=== PATIENT | male | born 1985 | race Caucasian/White ===

== ENCOUNTER 2023-05-28 03:44 | Emergency (ER) | payer OTHER, SELFPAY ==
[2023-05-28 04:14] VITALS: BP 144/94; PULSE 117; RESP 18; TEMP 37; O2SAT 100; BMI 27.1
--- NOTE | 2023-05-28 04:57 | ED.DENTAL ---
HPI - Dental/Oral General Chief complaint: Dental/Oral Stated complaint: Dental pain Time Seen by Provider: 05/28/23 04:47 Source: patient and old records reviewed Mode of arrival: ambulatory Limitations: no limitations History of Present Illness HPI Narrative: 37 yo male with PMH of asthma, GERD, obesity here with c/o L lower molar cracking two weeks ago tonight woke up noted white stuff coming out of tooth area with toothace, also feels swollen glands and tightening of the neck muscles, and popping in the ears. MD Complaint: tooth pain Location: Tooth # (17) Onset (ago): hour(s) (few) Duration: constant Severity: moderate Relieving factors: nothing Exacerbating factors: chewing Context: trauma (mechanism) Associated symptoms: gum swelling and ear pain Treatment prior to arrival: none Related Data Home Medications Medication Instructions Recorded Confirmed buprenorphine 5.7 mg-naloxone 1.4 1 tab sublingual DAILY 01/11/20 04/11/20 mg sublingual tablet (Zubsolv) Previous Rx's Medication Instructions Recorded ProAir HFA 90 mcg/actuation 2 puff inhalation Q6H PRN for 10/09/20 aerosol inhaler (albuterol sulfate) wheezing #8.5 grams omeprazole 20 mg capsule,delayed 20 mg PO DAILY #90 caps 11/01/20 release hydroxyzine HCl 50 mg tablet 50 mg PO BID PRN itching #60 tabs 02/17/21 fluticasone propionate 110 2 puff inhalation BID #12 grams 03/23/21 mcg/actuation HFA aerosol inhaler (Flovent HFA) amoxicillin 875 mg-potassium 1 tab PO BID #13 tabs 05/28/23 clavulanate 125 mg tablet ofloxacin 0.3 % ear drops 5 drp otic (ears) DAILY 7 days #5 05/28/23 mL Allergies Allergy/AdvReac Type Severity Reaction Status Date / Time No Known Allergies Allergy Verified 01/11/20 16:08 Review of Systems Review of Systems: Constitutional : No Fever, No Chills ENT/Mouth : No swallowing difficulty, no change in voice, positive dental pain, positive jaw pain, no facial swelling Eyes: No Eye Pain, No Swelling Cardiovascular : No Chest Pain, No SOB Respiratory : No Cough, No Sputum Gastrointestinal : No Nausea, No Vomiting, No Diarrhea Genitourinary : No Dysuria Musculoskeletal : No Myalgias Skin : No rash Neuro : No Weakness, No Numbness, No Headache [facility] Past Medical History Attestation statement: The following information was validated with the patient. Source: old records reviewed Medical History Anxiety and depression Polysubstance abuse GERD (gastroesophageal reflux disease) Obesity (BMI 30-39.9) Asthma Surgical History No pertinent past surgical history Family History Family History (Updated 04/11/20 @ 12:04 by Maryanne Johnson MD) Father Hodgkin disease Mother No problems noted. Maternal Grandfather Esophageal cancer Maternal Uncle Drug addiction Myocardial infarct Sister Depressed Social History Social History Alcohol intake: never Advance Directives: No Advance Directives Information Provided: Yes Physical Exam Vital Signs: Vital Signs: Last Vital Signs Temp 98.6 F 05/28/23 04:14 Pulse 117 H 05/28/23 04:14 Resp 18 05/28/23 04:14 BP 144/94 H 05/28/23 04:14 Pulse Ox 100 05/28/23 04:14 O2 Del Method Room Air 05/28/23 04:14 BMI result Body Mass Index 27.1 Appearance: Alert. Oriented X3. No acute distress. Eyes: Pupils equal, round and reactive to light. ENT: Pharynx normal. no trismus L lower molar 17th ttp cracked no fluctuance no abscess noted no sublingual no submandibular swelling normal ROM bilateral ear canals mild erythema no drainage mild ttp Neck: Normal inspection. Neck supple. CVS: Normal heart rate and rhythm. Pulses normal. Respiratory: No respiratory distress. Breath sounds normal. Abdomen: Soft and nontender. Skin: Skin warm and dry. Normal skin color. Normal skin turgor. Extremities: No lower extremity edema. No calf ttp Neuro: Oriented X 3. No motor deficit. No sensory deficit. Medical Decision Making Medical Decision Making [facility] Narrative: 37 yo male with PMH of asthma, GERD, obesity here with left lower tooth pain and cracked tooth will need augmentin no signs of deeper space infection no sublingual or submandibular swelling no abscess noted, bilateral otitis externa noted. not toxic appearing Differential Diagnosis Differential Diagnoses: The differential diagnosis associated with the presentation includes toothache, cracked tooth, otitis externa External Record Review External record reviewed: Inpatient record Prescription Management I considered prescription management with: Pain Medication, Antibiotic and Other Discharge Plan Discharge Clinical Impression: Toothache Otitis externa Qualifiers: Otitis externa type: diffuse Chronicity: acute Laterality: bilateral Qualified Code(s): H60.313 - Diffuse otitis externa, bilateral Patient Disposition: Home, Self-Care Instructions: Otitis Externa (ED), Toothache (ED) Additional Instructions: follow up with your dentist return for worsening symptoms, fevers, pain, swelling or any other concerns. On amoxicillin-clavulanate, softer bowel movements are to be expected. Call your provider if you move your bowels more than 4 times a day, your bowel movements are almost all liquid, or you get a rash.? Prescriptions: New amoxicillin-pot clavulanate 875-125 mg tablet 1 tab PO BID Qty: 13 0RF ofloxacin 0.3 % drops 5 drp otic (ears) DAILY 7 Days Qty: 5 0RF No Action albuterol sulfate [ProAir HFA] 90 mcg/actuation HFA aerosol inhaler 2 puff inhalation Q6H PRN (Reason: for wheezing) Qty: 8.5 1RF omeprazole 20 mg capsule,delayed release(DR/EC) 20 mg PO DAILY Qty: 90 1RF hydroxyzine HCl 50 mg tablet 50 mg PO BID PRN (Reason: itching) Qty: 60 2RF Flovent HFA 110 mcg/actuation HFA aerosol inhaler 2 puff inhalation BID Qty: 12 11RF Zubsolv 5.7-1.4 mg tablet, sublingual 1 tab sublingual DAILY
[2023-05-28] MEDS: Amoxicillin/Potassium Clav 875 MG TABLET PO (05:13)
[2023-05-28 05:20] VITALS: BP 113/75; PULSE 103; RESP 16; TEMP 36.8; O2SAT 97
== END 2023-05-28 05:21 | disposition home or self-care (01) ==
PROVIDERS: Emergency Provider Emergency Medicine; PCP Internal Medicine
DX: H60.313 Diffuse otitis externa, bilateral (principal); K08.89 Other specified disorders of teeth and supporting structures
CPT/HCPCS: 99283

== ENCOUNTER 2023-08-05 13:50 | Emergency (ER) | payer SELFPAY ==
--- NOTE | ~2023-08-05 | CT_ITS ---
EXAMINATION: CT SOFT TISSUE NECK WITH CONTRAST CLINICAL INFORMATION: Left facial swelling, concern for dental abscess versus parotitis COMPARISON: None. TECHNIQUE: Following the administration of 60 mL of Omnipaque 350 intravenous contrast, helical imaging was performed in the axial plane with generation of coronal and sagittal reformatted images. This CT examination was performed using dose optimization techniques as appropriate, variously including the following: *Automated exposure control. *Adjustment of mA and/or kV according to patient size (this includes techniques or standardized protocols for targeted exams where dose is matched to indication/reason for exam; i.e. extremities or head). *Use of iterative reconstruction technique. DLP: 512 mGy-cm. FINDINGS: Carious left mandibular first and second molars with periodontal/periapical disease associated with the carious left mandibular molar, suspected periapical abscess given extensive infectious transspatial process in the left face/neck. Presumably odontogenic edema/phlegmon within the left ecologist space with myositis of the ecologist space musculature. Ill-defined somewhat branching peripherally enhancing hypodensity within the left medial pterygoid muscle suspicious for developing intramuscular abscess, spanning approximately 2.8 cm in craniocaudal dimension and 0.4 cm in width. There is asymmetric thickening of the left perimandibular gingivobuccal soft tissues without drainable subperiosteal abscess. Thickening of the left greater than right platysma muscles. Skin thickening and reticulation within the superficial and deep subcutaneous soft tissues of the left face, submandibular, and submental region tracking caudally into the left greater than right infrahyoid neck compatible with cellulitis. Significant inflammatory stranding of the left submandibular triangle with acute secondary sialoadenitis of the left submandibular gland. Asymmetric enlargement and increased density of the left parotid gland, likely also reflecting secondary parotitis. Cellulitis tracks caudally, marginating the left visceral space and infrahyoid musculature. There is edema/myositis of the left greater than right floor of mouth. Query minimal stranding within the left base of neck/upper mediastinum adjacent to the left common carotid and subclavian arteries. No retropharyngeal effusion. Submucosal edema involves the left nasopharynx effacing the left fossa of Rosenmuller, left palatine tonsil extending to its junction with the soft palate, and tracks caudally along the left lateral oropharyngeal, and left tongue base with effacement of the left vallecula. There is mild narrowing of the oropharyngeal airway. Reactive prominent bilateral level 1b, level 1a, and jugulodigastric lymph nodes. Carious right posterior mandibular molar with periodontal/periapical lucency and active osteitis of the surrounding mandibular alveolus. There is significant mucosal disease and patchy secretions throughout the bilateral nasal cavities and within the nasopharynx. Mild mucosal disease within the maxillary sinuses. A couple opacified bilateral mastoid air cells. The temporomandibular joints are normal. The laryngeal structures are opposed, limiting assessment. The right submandibular and parotid glands are normal, noting cellulitis within the right submandibular triangle. The thyroid gland is normal. The partially visualized lung apices are clear. Grossly normal opacification of the major neck vessels. Mild cervical spondylosis. The imaged portions of the brain parenchyma are unremarkable. CT/CT soft tissue neck w IV con IMPRESSION: 1. Carious left mandibular first and second molars, suspected odontogenic source of infection with cellulitis tracking throughout the left greater than right face and neck as above. Significant phlegmon/myositis in the left ecologist space with developing abscess in the left medial pterygoid muscle spanning approximately 2.8 cm in craniocaudal dimension and 0.4 cm in width. Associated secondary acute left submandibular and likely left parotid sialoadenitis. Asymmetric submucosal edema throughout the left pharyngeal mucosal space mildly narrowing the oropharynx. Edema/myositis noted along the left greater than right floor of mouth. Query minimal stranding within the left base of neck/upper mediastinum adjacent to the left common carotid and subclavian arteries, which opacify normally. Reactive cervical chain lymphadenopathy. 2. Carious right posterior mandibular molar. 3. Paranasal sinus mucosal disease as above.
[2023-08-05 14:15] VITALS: BP 152/92; PULSE 130; RESP 20; TEMP 36.8; O2SAT 97; BMI 27.9
--- NOTE | 2023-08-05 14:16 | ED_ITS ---
HPI - General Adult General Chief complaint: Neck Pain/Injury Stated complaint: facial swelling into neck Time Seen by Provider: 08/05/23 14:39 History of Present Illness ED Provider: Dr. Jose Rafael Prater HPI narrative: 37-year-old male with a history of dysphagia, GERD, obesity, asthma, heroin use disorder in remission who presents emergency department for evaluation of left- sided face and neck swelling x6 days. He states initially there was a small amount of swelling on left side of his face but overnight the swelling got significantly worse. He states that it is spread below his jaw and to his neck. He states that he is having [id number] pain in this area which she describes as a pressure-like sensation which is 4/10. He is having difficulty opening his mouth secondary to the swelling. He denied fever or chills but he states he does feel like he is getting hot flashes. He states he feels short of breath but he attributes this to his asthma. He denied nausea, vomiting or diarrhea. This is 1st episode of this type of swelling. He states he did crack a tooth on the left side of his mouth proximally 1 year prior but is having no dental pain. The patient states his symptoms are making him very anxious. He has a history of intranasal heroin use but he states that he has been in remission and has not used recently. Related Data Home Medications ?Medication ?Instructions ?Recorded ?Confirmed buprenorphine 5.7 mg-naloxone 1.4 1 tab sublingual DAILY 01/11/20 04/11/20 mg sublingual tablet (Zubsolv) Previous Rx's ?Medication ?Instructions ?Recorded ProAir HFA 90 mcg/actuation 2 puff inhalation Q6H PRN for 10/09/20 aerosol inhaler (albuterol sulfate) wheezing #8.5 grams omeprazole 20 mg capsule,delayed 20 mg PO DAILY #90 caps 11/01/20 release hydroxyzine HCl 50 mg tablet 50 mg PO BID PRN itching #60 tabs 02/17/21 fluticasone propionate 110 2 puff inhalation BID #12 grams 03/23/21 mcg/actuation HFA aerosol inhaler (Flovent HFA) amoxicillin 875 mg-potassium 1 tab PO BID #13 tabs 05/28/23 clavulanate 125 mg tablet ofloxacin 0.3 % ear drops 5 drp otic (ears) DAILY 7 days #5 05/28/23 mL Allergies Allergy/AdvReac Type Severity Reaction Status Date / Time No Known Allergies Allergy Verified 08/05/23 14:18 Review of Systems 2 Review of Systems: Yes all other systems are reviewed and are negative [facility] Past Medical History [facility] Narrative: Social history: He denies tobacco, alcohol and drug use. Medical History Anxiety and depression Polysubstance abuse GERD (gastroesophageal reflux disease) Obesity (BMI 30-39.9) Asthma Surgical History No pertinent past surgical history Family History Family History (Updated 04/11/20 @ 12:04 by Maryanne Johnson MD) Father Hodgkin disease Mother No problems noted. Maternal Grandfather Esophageal cancer Maternal Uncle Drug addiction Myocardial infarct Sister Depressed Social History Social History Alcohol intake: never Advance Directives: No Advance Directives Information Provided: No Physical Exam ED Vital Signs: Vital Signs - 24 hr 08/05/23 14:15 08/05/23 16:15 08/05/23 19:42 Temperature 98.2 F 97.5 F 97.7 F Pulse Rate 130 H 97 99 Respiratory Rate 20 12 16 Blood Pressure 152/92 H 101/63 97/70 Pulse Oximetry 97 98 97 Oxygen Delivery Method Room Air Room Air Room Air 08/05/23 19:52 Temperature 97.7 F Pulse Rate 99 Respiratory Rate 16 Blood Pressure 97/70 Pulse Oximetry 97 Oxygen Delivery Method Room Air BMI result Body Mass Index 27.9 Vital signs revealed an elevated heart rate of 130, elevated respiratory rate of 20 and an elevated blood pressure of 152/92 Exam: General: Awake, alert in no distress, does appear to be anxious Head: Normocephalic, patient does have soft tissue swelling over the left mandible region, the swelling extends below the mandible and also he has swelling in the submental area. The area of the mandible swelling and submental swelling is moderately tender to palpation, there has no increased warmth or evidence of cellulitis. Patient does have trismus is having difficulty opening his mouth but no difficulty swallowing or talking. EENT: PERRL, Lids normal, sclera normal, conjunctiva normal, nose normal , ears normal, throat without erythema or exudates Neck: Supple, no adenopathy Lung: breath sounds symmetric, no wheezing, rales or rhonchi Chest: symmetric movement, nontender Heart: regular rate and rhythm, normal S1, S2 no murmurs or rubs Abdomen: soft, non-tender, nondistended, normal bowel sounds Back: no vertebral tenderness, no CVAT Extremities: no deformities, moves all extremities symmetrically Neuro: Awake, alert, oriented, normal speech, cranial nerves intact, moves all extremities symmetrically Psych: Pleasant, cooperative Course Course Course Narrative: This is an RME: Additional HPI, ROS, PE not included below will be deferred to primary provider. RME assessment and note performed by: Deneen Trejo PA-C This is a [id number], history of asthma, anxiety and depression, gastroesophageal reflux disease and polysubstance abuse (no Hx of IVDA), who presents emergency department with complaints of left-sided neck pain and jaw swelling since yesterday. Patient states that 1 year ago he cracked his tooth. He has not had any dental pain or recent dental issues. No shortness of breath but reports difficulty swallowing, has not been able to eat or drink anything. He states he is unable to open his mouth. He does report that he was able to take ibuprofen and Tylenol prior to his arrival. Discussed with charge nurse, advised to bring patient back as soon as possible Plan: Labs, CT, further ER evaluation needed Medications Administered Discontinued Medications Generic Name Dose Route Start Last Admin Trade Name Freq PRN Reason Stop Dose Admin Dexamethasone Sodium Phosphate 10 mg 08/05/23 19:23 08/05/23 19:35 Dexamethasone Sod Phosphate 10 Mg/Ml Vial IVPUSH 08/05/23 19:24 10 mg ONCE ONE Administration Sodium Chloride 1,000 mls @ 999 mls/hr 08/05/23 14:52 08/05/23 16:16 Ns IV 08/05/23 15:52 Infused .Q1H1M STA Infusion Piperacillin Sod/Tazobactam 100 mls @ 200 mls/hr 08/05/23 16:05 08/05/23 17:42 Sod 4.5 gm/ Sodium Chloride IV 08/05/23 16:34 Infused ONCE ONE Infusion Sodium Chloride 1,000 mls @ 999 mls/hr 08/05/23 16:06 08/05/23 17:42 Ns IV 08/05/23 17:06 Infused .Q1H1M STA Infusion Iohexol 100 ml 08/05/23 16:39 08/05/23 16:39 Iohexol 350 Mg/Ml 100 Ml Infus..Btl IV 08/05/23 16:40 60 ml ONCE ONE Administration Ketorolac Tromethamine 15 mg 08/05/23 14:52 08/05/23 15:01 Ketorolac Tromethamine 15 Mg/Ml Vial IVPUSH 08/05/23 14:53 15 mg ONCE STA Administration Midazolam HCl 2 mg 08/05/23 14:53 08/05/23 15:01 Midazolam Hcl/Pf 2 Mg/2 Ml Vial IVPUSH 08/05/23 14:54 2 mg ONCE ONE Administration Morphine Sulfate 4 mg 08/05/23 19:23 08/05/23 19:35 Morphine Sulfate 4 Mg/Ml Cartridge IVPUSH 08/05/23 19:24 4 mg ONCE ONE Administration Protocol Ondansetron HCl 4 mg 08/05/23 19:23 08/05/23 19:35 Ondansetron Hcl 4 Mg/2 Ml Vial IVPUSH 08/05/23 19:24 4 mg ONCE ONE Administration Medical Decision Making Medical Decision Making MDM Narrative: 37-year-old male with a history of dysphagia, GERD, obesity, asthma, heroin use disorder in remission who presents emergency department for evaluation of left- sided face and neck swelling x6 days which got significantly worse overnight. Patient states he has having a dull pain in the area of swelling which is 4/10, is having trismus but no dental pain. Denied fever or chills but he did have hot flash like sensations since last night. Vital signs revealed that he was afebrile but he did have an elevated heart rate, respiratory rate and blood pressure. Physical examination did reveal soft tissue swelling of the left mandible which extends below the mandible and to the submental area, this area of swelling is tender to palpation. He also has trismus. Differential diagnosis: ?Includes but is not limited to dental abscess, pancreatitis, electrolyte abnormalities, anemia Course: 16:10 My independent interpretation patient's laboratory evaluation is as follows: [place] [address] with left shift 89 neutrophils and 7 bands. Normocytic anemia with an H&H of 13.5 and 39.8. Elevated BUN and creatinine 33 and 1.88. Glucose elevated 119. Lactic acid was normal at 1.0. Given the patient's laboratory evaluation I am concerned that he may have an infectious process and that he may be dehydrated/volume depleted. Patient was treated with Zosyn 4.5 g IV and normal saline IV x2 L. He also received Toradol 15 mg IV for his pain and Versed 2 mg IV for his anxiety and he is feeling better. At the end of my shift, the patient has not gotten his CT scan of the neck with IV contrast, therefore the patient's care was turned over to my colleague, Dr. Serena Fung. Patient with left lower molar odontogenic caries with spreading of the infection and deeper neck space for last 6 days, got worse in last 2 days, patient unable to open his mouth more than [address] scan showed 2.8 cm by 0.4 cm flag bone/myositis left inspector motor vehicles space developing abscess with minimal stranding within the left base of neck and upper mediastinum adjacent to left common carotid artery and subclavian arteries. Case discussed with [facility] transfer line not accepting any transfers at this time except trauma case discussed with transfer center at [facility] accepted the patient to be transferred to [facility] ER doctor Dr Daniels is the accepting physician. Patient has received 4.5 g of Zosyn 10 mg of Decadron Toradol and morphine Admission/Observation Consideration of admission/observation: Escalation of care including admission/observation considered Lab Data MDM Lab Attestation statement: I reviewed the patient's lab results. 08/05/23 14:54 08/05/23 14:54 Labs: Lab Results 08/05/23 Range/Units 14:54 WBC 19.4 H (4.8-10.8) X10*3/uL RBC 4.95 (4.60-5.80) X10*6/uL Hgb 13.5 L (14.0-18.0) g/dl Hct 39.8 L (42.0-52.0) % MCV 80.4 (80.0-98.0) fL MCH 27.3 (27.0-33.0) pg MCHC 33.9 (31.0-36.0) g/dl RDW 13.2 (11.0-16.0) % Plt Count 265 (160-400) X10*3/uL MPV 8.9 L (9.4-12.4) fL Immature Gran % (Auto) Cancelled Neut % (Auto) Cancelled Lymph % (Auto) Cancelled [place] % (Auto) Cancelled Eos % (Auto) Cancelled Baso % (Auto) Cancelled Lymph # (Auto) Cancelled [place] # (Auto) Cancelled Eos # (Auto) Cancelled Baso # (Auto) Cancelled Abs Immat Gran (auto) Cancelled Absolute Neuts (auto) Cancelled Absolute Nucleated RBC 0.000 (0.0-0.012) X10*3/uL Nucleated RBC % (auto) 0.0 (0.0-0.2) /100WBC Neutrophils % (Manual) 89 H (45-73) % Band Neutrophils % 7 H (3-5) % Monocytes % (Manual) 4 (2-11) % Abs Neuts (Manual) 18.6 H (2.0-8.3) X10*3/uL Monocytes # (Manual) 0.8 (0.1-1.2) X10*3/uL Platelet Estimate NORMAL (NORMAL) Plt Morphology Comment NORMAL RBC Morphology NORMAL Sodium 139 (135-145) mmol/L Potassium 3.6 (3.3-5.1) mmol/L Chloride 104 (96-108) mmol/L Carbon Dioxide 22 (22-29) mmol/L Anion Gap 17 (12-20) BUN 33 H (9-16) mg/dL Creatinine 1.88 H (0.5-1.4) mg/dL Estim Creat Clear Calc 53.7 Estimated GFR 40 Random Glucose 119 H (60-115) mg/dL Lactic Acid 1.0 (0.5-2.0) mmol/L Calcium 9.7 (8.4-10.2) mg/dL Total Bilirubin 0.6 (0.0-1.0) mg/dL Direct Bilirubin 0.3 (0.0-0.5) mg/dL AST 22 (5-37) U/L ALT 19 (0-40) U/L Alkaline Phosphatase 109 (39-117) U/L Total Protein 8.6 H (6.5-8.0) g/dL Albumin 4.3 (3.5-5.0) g/dL Independent Interpretation I performed an independent interpretation of an: CT Scan Radiology Impression Discussion of test interpretation with radiology: I have reviewed the radiologist's reading. Radiologist Impression: [address] [address] [address] Scan Report Signed with Addenda Patient: Yung Rodriguez MR#: [id number] : 1985 Acct:[id number] Age/Sex: 37 / M ADM Date: 08/05/23 Loc: HO.ED Attending Dr: Ordering Physician: Jose Rafael Prater MD Date of Service: 08/05/23 Procedure(s): CT soft tissue neck w IV con Accession Number(s): [id number] cc: Maryanne Johnson MD; Jose Rafael Prater MD~ ADDENDUM This critical result was discussed with Dr. Lyons by telephone at 01/01/2022 9:44 PM and it was ascertained that the content and urgency of the report was understood at the time of direct communication. Addendum Dictated By: Karlee Glez Addendum Signed By: <Electronically signed by Karlee Glez in OV> 08/05/23 1857 Addendum Cosigned By: DD/ TD/TT: / EXAMINATION: CT SOFT TISSUE NECK WITH CONTRAST CLINICAL INFORMATION: Left facial swelling, concern for dental abscess versus parotitis COMPARISON: None. TECHNIQUE: Following the administration of 60 mL of Omnipaque 350 intravenous contrast, helical imaging was performed in the axial plane with generation of coronal and sagittal reformatted images. This CT examination was performed using dose optimization techniques as appropriate, variously including the following: *Automated exposure control. *Adjustment of mA and/or kV according to patient size (this includes techniques or standardized protocols for targeted exams where dose is matched to indication/reason for exam; i.e. extremities or head). *Use of iterative reconstruction technique. DLP: 512 mGy-cm. FINDINGS: Carious left mandibular first and second molars with periodontal/periapical disease associated with the carious left mandibular molar, suspected periapical abscess given extensive infectious transspatial process in the left face/neck. Presumably odontogenic edema/phlegmon within the left inspector motor vehicles space with myositis of the inspector motor vehicles space musculature. Ill-defined somewhat branching peripherally enhancing hypodensity within the left medial pterygoid muscle suspicious for developing intramuscular abscess, spanning approximately 2.8 cm in craniocaudal dimension and 0.4 cm in width. There is asymmetric thickening of the left perimandibular gingivobuccal soft tissues without drainable subperiosteal abscess. Thickening of the left greater than right platysma muscles. Skin thickening and reticulation within the superficial and deep subcutaneous soft tissues of the left face, submandibular, and submental region tracking caudally into the left greater than right infrahyoid neck compatible with cellulitis. Significant inflammatory stranding of the left submandibular triangle with acute secondary sialoadenitis of the left submandibular gland. Asymmetric enlargement and increased density of the left parotid gland, likely also reflecting secondary parotitis. Cellulitis tracks caudally, marginating the left visceral space and infrahyoid musculature. There is edema/myositis of the left greater than right floor of mouth. Query minimal stranding within the left base of neck/upper mediastinum adjacent to the left common carotid and subclavian arteries. No retropharyngeal effusion. Submucosal edema involves the left nasopharynx effacing the left fossa of Rosenmuller, left palatine tonsil extending to its junction with the soft palate, and tracks caudally along the left lateral oropharyngeal, and left tongue base with effacement of the left vallecula. There is mild narrowing of the oropharyngeal airway. Reactive prominent bilateral level 1b, level 1a, and jugulodigastric lymph nodes. Carious right posterior mandibular molar with periodontal/periapical lucency and active osteitis of the surrounding mandibular alveolus. There is significant mucosal disease and patchy secretions throughout the bilateral nasal cavities and within the nasopharynx. Mild mucosal disease within the maxillary sinuses. A couple opacified bilateral mastoid air cells. The temporomandibular joints are normal. The laryngeal structures are opposed, limiting assessment. The right submandibular and parotid glands are normal, noting cellulitis within the right submandibular triangle. The thyroid gland is normal. The partially visualized lung apices are clear. Grossly normal opacification of the major neck vessels. Mild cervical spondylosis. The imaged portions of the brain parenchyma are unremarkable. CT/CT soft tissue neck w IV con IMPRESSION: 1. Carious left mandibular first and second molars, suspected odontogenic source of infection with cellulitis tracking throughout the left greater than right face and neck as above. Significant phlegmon/myositis in the left inspector motor vehicles space with developing abscess in the left medial pterygoid muscle spanning approximately 2.8 cm in craniocaudal dimension and 0.4 cm in width. Associated secondary acute left submandibular and likely left parotid sialoadenitis. Asymmetric submucosal edema throughout the left pharyngeal mucosal space mildly narrowing the oropharynx. Edema/myositis noted along the left greater than right floor of mouth. Query minimal stranding within the left base of neck/upper mediastinum adjacent to the left common carotid and subclavian arteries, which opacify normally. Reactive cervical chain lymphadenopathy. 2. Carious right posterior mandibular molar. 3. Paranasal sinus mucosal disease as above. Dictated By: Karlee Glez Signed By: <Electronically signed by Karlee Glez in OV> Discharge Plan Discharge Clinical Impression: Cellulitis and abscess of neck Patient Disposition: er [facility] Hospital Transfer Details: To [facility] ER Dr. Daniels accepted the patient Prescriptions: No Action albuterol sulfate [ProAir HFA] 90 mcg/actuation HFA aerosol inhaler 2 puff inhalation Q6H PRN (Reason: for wheezing) Qty: 8.5 1RF omeprazole 20 mg capsule,delayed release(DR/EC) 20 mg PO DAILY Qty: 90 1RF hydroxyzine HCl 50 mg tablet 50 mg PO BID PRN (Reason: itching) Qty: 60 2RF Flovent HFA 110 mcg/actuation HFA aerosol inhaler 2 puff inhalation BID Qty: 12 11RF amoxicillin-pot clavulanate 875-125 mg tablet 1 tab PO BID Qty: 13 0RF ofloxacin 0.3 % drops 5 drp otic (ears) DAILY 7 Days Qty: 5 0RF Zubsolv 5.7-1.4 mg tablet, sublingual 1 tab sublingual DAILY Interventions: Acute Care Transfer Worksheet (ED) Last Done: 08/05/23 19:52 Discharge Date/Time: 08/05/23 19:53 Print Language: [place]anian
[2023-08-05] MEDS: 0.9 % Sodium Chloride 1,000 ML 999 ML IV ×2 (14:57→16:49)
[2023-08-05] MEDS: Midazolam HCl/PF 2 MG/2 ML VIAL IVPUSH (15:01)
[2023-08-05] MEDS: Ketorolac Tromethamine 15 MG/ML VIAL IVPUSH (15:01)
[2023-08-05 15:03] LABS: Hematocrit 39.8 % (42.0-52.0); Hemoglobin 13.5 g/dl (14.0-18.0); Mean Corpuscular HGB Conc 33.9 g/dl (31.0-36.0); Mean Corpuscular Hemoglobin 27.3 pg (27.0-33.0); Mean Corpuscular Volume 80.4 fL (80.0-98.0); Mean Platelet Volume 8.9 fL (9.4-12.4); Platelet Count 265 X10*3/uL (160-400); Red Blood Count 4.95 X10*6/uL (4.60-5.80); Red Cell Distribution Width 13.2 % (11.0-16.0); White Blood Count 19.4 X10*3/uL (4.8-10.8)
[2023-08-05 15:33] LABS: Alanine Aminotransferase 19 U/L (0-40); Albumin Level 4.3 g/dL (3.5-5.0); Alkaline Phosphatase 109 U/L (39-117); Anion Gap 17 (12-20); Aspartate Amino Transferase 22 U/L (5-37); Bilirubin Direct 0.3 mg/dL (0.0-0.5); Bilirubin Total 0.6 mg/dL (0.0-1.0); Blood Urea Nitrogen 33 mg/dL (9-16); Calcium 9.7 mg/dL (8.4-10.2); Carbon Dioxide 22 mmol/L (22-29); Chloride 104 mmol/L (96-108); Creatinine Clr Calc Pharmacy 53.7; Estimated Glomerular Filt Rate 40; Glucose Random 119 mg/dL (60-115); Potassium 3.6 mmol/L (3.3-5.1); Sodium 139 mmol/L (135-145); Total Protein 8.6 g/dL (6.5-8.0)
[2023-08-05 15:34] LABS: Band Neutrophils Percent 7 % (3-5); Monocytes Absolute Manual 0.8 X10*3/uL (0.1-1.2); Monocytes Percent Manual 4 % (2-11); Neutrophils Absolute Manual 18.6 X10*3/uL (2.0-8.3); Neutrophils Percent Manual 89 % (45-73)
[2023-08-05 15:35] LABS: Platelet Estimate NORMAL (NORMAL); Platelet Morphology Comment NORMAL; RBC Morphology NORMAL
[2023-08-05 16:15] VITALS: BP 101/63; PULSE 97; RESP 12; TEMP 36.4; O2SAT 98
[2023-08-05] MEDS: Piperacillin Sodium/Tazobactam 4.5 GM in 0.9 % Sodium Chloride 100 ML IV (16:32)
[2023-08-05] MEDS: iohexoL 350 MG/ML 100 ML INFUS..BTL IV (16:39)
[2023-08-05] MEDS: Morphine Sulfate 4 MG/ML CARTRIDGE IVPUSH (19:35)
[2023-08-05] MEDS: dexAMETHasone sod phosphate 10 MG/ML VIAL IVPUSH (19:35)
[2023-08-05] MEDS: ondansetron HCL 4 MG/2 ML VIAL IVPUSH (19:35)
[2023-08-05 19:42] VITALS: BP 97/70; PULSE 99; RESP 16; TEMP 36.5; O2SAT 97
[2023-08-05 19:52] VITALS: BP 97/70; PULSE 99; RESP 16; TEMP 36.5; O2SAT 97
== END 2023-08-05 19:53 | disposition short-term general hospital (02) ==
PROVIDERS: Physician Assistant Medical; Emergency Provider Internal Medicine; PCP Internal Medicine
DX: L03.221 Cellulitis of neck (principal); L02.11 Cutaneous abscess of neck; R22.0 Localized swelling, mass and lump, head; K21.9 Gastro-esophageal reflux disease without esophagitis; J45.909 Unspecified asthma, uncomplicated; F19.91 Other psychoactive substance use, unspecified, in remission
CPT/HCPCS: 36415; 70491; 80048; 80076; 83605; 85007; 85025; 85027; 87040; 96361; 96365; 96375; 99285; J1100; J1885; J2250; J2270; J2405; J2543; Q9967

== ENCOUNTER 2025-03-04 21:54 | Emergency (ER) | payer MEDICAID, SELFPAY ==
--- NOTE | 2025-03-04 | ECG_ITS ---
Test Reason : SEIZURE Blood Pressure : */* mmHG Vent. Rate : 70 BPM Atrial Rate : 70 BPM P-R Int : 150 ms QRS Dur : 90 ms QT Int : 402 ms P-R-T Axes : 18 53 42 degrees QTcB Int : 434 ms Normal sinus rhythm Normal ECG No previous ECGs available Referred By: Generic ED Physician Electronically Signed By: JOHANN CUMMINS MD
--- NOTE | ~2025-03-04 | CT_ITS ---
CLINICAL HISTORY: seizure, head injury CT head without contrast Comparison: None provided Findings: No intra-axial mass, midline shift, hydrocephalus, or acute hemorrhage. No significant atrophy-like change or white matter disease. The visualized paranasal sinuses and mastoid air cells are normal. The orbits are unremarkable. Left parietal scalp swelling and small scalp hematoma. No skull fracture. IMPRESSION: 1. No acute intracranial findings. 2. Left parietal scalp swelling and small scalp hematoma. This document has been electronically signed by: Serge Munoz MD on 03/05/2025 00:38:38
[2025-03-04 21:57] VITALS: BP 116/80; BP 136/97; PULSE 94; RESP 18; TEMP 36.6; O2SAT 98; O2SAT 99; BMI 26.9
--- OUTSIDE RECORDS SUMMARY | 2025-03-04 22:24 | XMS_ITS | Encounter Summary ---
Author Organization [facility] Address [address] [place] [address] Care Team Providers Care Supercharger Repair Supervisor Name Role Phone System, Provider Not In Primary Care Provider Un available Encounter Details Date Type Department Care Team (Latest Contact Info) Description 08/05/2023 Hospital Encounter Social History Tobacco Use Types Packs/Day Years Used Date Smoking Tobacco: Never Assessed [facility] Utilities Answer Date Recorded In the past 12 months has th e [employer], gas, oil, or water company threatened to shut off services in your home? No 08/06/2023 AUDIT-C Answer Date Recorded Q1: How often do you have a drink containing alcohol? Never 08/06/2023 Q2: How many drinks containi ng alcohol do you have on a typical day when you are drinking? Patient does not drink Q3: How often do you have si x or more drinks on one occasion? Never 08/06/2023 Hunger Vital Sign Answer Date Recorded Within the past 12 months, y ou worried that your food would run out before you got the money to buy more. Never true 08/06/19 24 Within the past 12 months, t he food you bought just didn't last and you didn't have money to get more. Never true 08/06/2023 PRAPARE - Transportation Answer Date Re corded In the past 12 months, has l ack of transportation kept you from medical appointments or from getting medications? No 07/13 In the past 12 months, has l ack of transportation kept you from meetings, work, or from getting things needed for daily living? No 08/06/2023 Housing Stability Vital Sign Answer Brent e Recorded In the last 12 months, was t here a time when you were not able to pay the mortgage or rent on time? No 08/06/2023 In the last 12 months, how many places have you lived? 1 08/06/2023 In the last 12 months, was t here a time when you did not have a steady place to sleep or slept in a detention (including now)? No 08/06/2023 Sex and Gender Information Value Date Recorded Sex Assigned at Male 08/05/2023 10:34 PM EDT Legal Sex Male 7:23 PM EDT Gender Identity Male 08/05/2023 10:34 PM EDT Sexual Orientation Homosexual (lesbian or simmons) 0 08/05/2023 10:34 PM EDT documented as of this encounter Functional Status * AUDIT-C Score Answer Date of Assessment Author 0 08/06/2023 9:00 PM EDT Deondre Lieberman RN * Question Answer Date of Assessment Author AUDIT-C Total Score - Male 0 08/06/2023 9:00 PM EDT Christal Lieberman R N Q1: How often do you have a drink containing alcohol? Never 08/06/2023 9:00 PM EDT Christal Lieberman R N Q2: How many drinks containing alcohol do you have on a typical day when you are drinking? Patient does not drink 08/06/2023 9:00 PM SAMANTHAT Christal Lieberman RN Q3: How often do you have six or more drinks on one occasion? Never 08/06/2023 9:00 PM EDT Christal Lieberman R N * Level of Risk per Screen Answer Date of Assessment Author Low Risk 08/06/2023 9:00 PM SAMANTHAT Deondre Lieberman RN documented as of this encounter Plan of Treatment Not on file documented as of this encounter Visit Diagnoses Not on filedocumented in this encounter Care Teams Supercharger Repair Supervisor Relationship Specialty Start Date End Date System, Provider Not In PCP - General 08/05/23 documented as of this encounter
--- OUTSIDE RECORDS SUMMARY | 2025-03-04 22:24 | XMS_ITS | Clinical Summary ---
Author Organization [facility] Address [address] [place] [address] Care Team Providers Care Carpet Tile Layer Name Role Phone System, Provider Not In Primary Care Provider Un available Allergies Active Allergy Reactions Criticality Noted Date Comments Buprenorphine-Naloxone Swelling Medium 08/05/2023 Tongue swelling Medications ibuprofen (MOTRIN) 200 MG tablet Take 2 tablets (400 mg total) by mouth 4 times daily (every 6 hours) as needed for mild pain. Active acetaminophen (TYLENOL) 500 MG tablet Take 1 tablet (500 mg total) by mouth 4 times daily (every 6 hours) as needed for mild pain. Active albuterol (PROVENTIL HFA; VENTOLIN HFA) 108 (90 Base) MCG/ACT inhaler Inhale 2 puffs 4 times daily (every 6 hours) as needed for wheezing. Active hydrOXYzine Pamoate (VISTARIL PO) Take 1 capsule by mouth 3 (three) times a day as needed. Unknown strength Active acetaminophen (TYLENOL) 500 MG tabletIndicatio ns:Pain, dental Take 1 tablet (500 mg total) by mouth 4 times daily (every 6 hours) as needed for mild pain. 30 tablet 08/10/2023 Active ibuprofen (MOTRIN) 600 MG tabletIndicatio ns:Pain, dental Take 1 tablet (600 mg total) by mouth 4 times daily (every 6 hours) as needed for mild pain. 30 tablet 08/10/2023 Active oxyCODONE (ROXICODONE) 5 MG immediate release tabletIndicatio ns:Pain, dental Take 1 tablet (5 mg total) by mouth every 4 (four) hours as needed for severe pain. Max Daily Amount: 30 mg 12 tablet 08/10/2023 Active chlorhexidine (PERIDEX) 0.12 % oral solutionIndicat ions:Pain, dental Apply 15 mL to the mouth or throat 2 (two) times a day. 473 mL 08/10/2023 Active Active Problems Problem Noted Date Diagnosed Date Abscess 08/06/2023 Social History Tobacco Use Types Packs/Day Years Used Date Smoking Tobacco: Never Assessed [facility] Utilities Answer Date Recorded In the past 12 months has th e electric, gas, oil, or water company threatened to [...] money to buy more. Never true 08/06/19 Within the past 12 months, t he [...] place to sleep or slept in a fci (including now)? No 08/06/2023 Sex and Gender Information Value Date Recorded Sex Assigned at Male 08/05/2023 10:34 PM EDT Legal Sex Male 7:23 PM EDT Gender Identity Male 08/05/2023 10:34 PM EDT Sexual Orientation Homosexual (lesbian or simmons) 0 08/05/2023 10:34 PM EDT Last Filed Vital Signs Vital Sign Reading Time Taken Comments Blood Pressure 113/56 08/07/2023 5:51 AM EDT Pulse 71 08/07/2023 5:51 AM EDT Temperature 36.9 C (98.4 F) 08/07/2023 5:51 AM EDT Respiratory Rate 18 08/07/2023 5:51 AM EDT Oxygen Saturation 97% 08/07/2023 5:51 AM EDT Inhaled Oxygen Concentration - - Weight 77.1 kg (170 lb) 08/06/2023 1:31 AM EDT Height 170.2 cm (5' 7 ) 08/06/2023 1:31 AM EDT Body Mass Index 26.63 08/06/2023 1:31 AM EDT Plan of Treatment Health Maintenance Due Date Last Done Comments Hepatitis C Virus Screening 1983 HIV Screening 09/28/1996 DTaP/Tdap/Td Vaccines (1 - Tdap) 09/28/2002 Hepatitis B Vaccines (1 of 3 - 19+ 3-dose series) 09/28/2002 Influenza Vaccine 10/12/2024 COVID-19 Vaccine ( - 2024-2 6 season) 2024 HPV Vaccines (No Doses Required) Completed Pneumococcal Vaccine: Pediat clement (0-5 Years) and At-Risk Patients (6 to 49 Years) Aged Out No longer eligible b ased on patient's age to complete this topic Insurance [employer] Advance Directives * Full Code (Latest Code Status on File) Date Activated Date Inactivated Comments 08/06/2023 1:13 AM Care Teams Carpet Tile Layer Relationship Specialty Start Date End Date System, Provider Not In PCP - General 08/05/23
--- OUTSIDE RECORDS SUMMARY | 2025-03-04 22:24 | XMS_ITS ---
[facility] Name [facility] Results Test Name/Text Value Interpretation Date Range Source Vancomycin SerPl-mCnc 12.0 mg/L Normal 08/07/2023 [facility] Time of last dose Information not given Normal 08/07/2023 [facility] Creat SerPl-mCnc 1.0 mg/dL Normal 08/07/2023 0.5 - 1.3 HH CCT GFR/BSA.pred SerPlBld HAM-GTV-BwANix >90.0 Normal 08/07/2023 59 - [facility] Ethanol Ur-mCnc Negative Normal 08/06/2023 - [facility] CT Buprenorphine Ur Ql Negative Normal 08/06/2023 - CCT BZE Ur Ql Positive Abnormal 08/06/2023 - [facility] fentaNYL+Norfentanyl Ur Ql Scn Positive Abnormal 08/06/2023 - CCT Oxycodone Ur Ql Scn Negative Normal 08/06/2023 - [facility] PCP Ur Ql Scn>25 ng/mL Negative Normal 08/06/2023 - CCT Tricyclics Ur Ql Scn Negative Normal 08/06/2023 - CCT Benzodiaz Ur Ql Scn>200 ng/mL Positive Abnormal 08/06/2023 - CCT Cannabinoids Ur Ql Scn>50 ng/mL Negative Normal 08/06/2023 - [facility] Barbiturates Ur Ql Scn>200 ng/mL Negative Normal 08/06/2023 - CCT Methadone Ur Ql Scn>300 ng/mL Negative Normal 08/06/2023 - CCT Amphetamines Ur Ql Negative Normal 08/06/2023 - [facility] Opiates Ur Ql Scn>300 ng/mL Positive Abnormal 08/06/2023 - [facility] ALT SerPl-cCnc 19.0 U/L Normal 08/06/2023 10 - 55 [facility] T Calcium SerPl-mCnc 8.6 mg/dL Below low normal 08/06/2023 8.7 - 10.5 [facility] Albumin/Glob SerPl 1.0 Ratio Normal 08/06/2023 1 - 3 [facility] Globulin Ser Calc-mCnc 3.5 g/dL Normal 08/06/2023 1.5 - 3.9 [facility] CO2 SerPl-sCnc 17.0 mmol/L Below low normal 08/06/2023 22 - 33 [facility] Chloride SerPl-sCnc 108.0 mmol/L Above high normal 98 - 107 [facility] Creat SerPl-mCnc 1.1 mg/dL Normal 08/06/2023 0.5 - 1.3 HH CCT BUN SerPl-mCnc 24.0 mg/dL Above high normal 08/06/2023 8 - 2 1 [facility] Albumin SerPl-mCnc 3.6 g/dL Normal 08/06/2023 3.5 - 5 [facility] ALP SerPl-cCnc 101.0 U/L Normal 08/06/2023 45 - 128 [facility] T Sodium SerPl-sCnc 137.0 mmol/L Normal 08/06/2023 136 - 14 5 [facility] AST SerPl-cCnc 30.0 U/L Normal 08/06/2023 10 - 55 [facility] T Prot SerPl-mCnc 7.1 g/dL Normal 08/06/2023 6.3 - 8.[address] Potassium SerPl-sCnc 4.9 mmol/L Normal 08/06/2023 3.4 - 5 .3 [facility] GFR/BSA.pred SerPlBld [id number]-GNK-TgRRvl 88.0 Normal 08/06/2023 59 - [facility] Glucose SerPl-mCnc 152.0 mg/dL Above high normal 08/06/2023 65 - 99 [facility] Anion Gap Bld-sCnc 12.0 Normal 08/06/2023 7 - 17 [facility] BUN/Creat SerPl 22.0 Ratio Normal 08/06/2023 10 - 25 HH CCT Bilirub SerPl-mCnc 0.3 mg/dL Normal 08/06/2023 0.2 - 1 [facility] Magnesium SerPl-mCnc 1.9 mg/dL Normal 08/06/2023 1.6 - 2. 7 [facility] RDW RBC Auto-Rto 13.2 % Normal 08/06/2023 11.5 - 14.5 [facility] PMV Bld Auto 9.5 fL Normal 08/06/2023 7.5 - 12.5 [facility]CT Monocytes num Bld Auto 0.64 Thou/uL Normal 08/06/2023 0.2 - 1.5 [facility]CT Hgb Bld-mCnc 12.2 g/dL Below low normal 08/06/2023 13 - 17.7 H[facility]CT Hct VFr Bld Auto 37.8 % Below low normal 08/06/2023 39 - 54 [facility] Imm Granulocytes num Bld Auto 0.31 Thou/uL Above high normal 08/06/2023 0 - 0.1 [facility] Monocytes/leuk NFr Bld Auto 4.1 % Normal 08/06/2023 [facility] MCH RBC Qn Auto 27.2 pg Normal 08/06/2023 26 - [address] Imm Granulocytes/leuk NFr Bld Auto 2.0 % Normal 08/06/2023 [facility] WBC num Bld Auto 15.7 Thou/uL Above high normal 08/06/2023 4 - 11 [facility] MCHC RBC Auto-mCnc 32.3 g/dL Normal 08/06/2023 30 - 36 [facility] MCV RBC Auto 84.0 fL Normal 08/06/2023 80 - 100 [facility] Lymphocytes/leuk NFr Bld Auto 3.4 % Normal 08/06/2023 [facility] Platelet num Bld Auto 203.0 Thou/uL Normal 08/06/2023 150 - 450 [facility]CT Basophils num Bld Auto 0.02 Thou/uL Normal 08/06/2023 0 - 0.2 [facility]CT Eosinophil num Bld Auto 0.0 Thou/uL Normal 08/06/2023 0 - 0.7 [facility] Lymphocytes num Bld Auto 0.53 Thou/uL Below low normal 08/06/2023 1.5 - 4.5 [facility] Basophils/leuk NFr Bld Auto 0.1 % Normal 08/06/2023 [facility] Neutrophils/leuk NFr Bld Auto 90.4 % Normal 08/06/2023 [facility] RBC num Bld Auto 4.48 Mil/uL Below low normal 08/06/2023 4.5 - 6.2 [facility]CT Eosinophil/leuk NFr Bld Auto 0.0 % Normal 08/06/2023 [facility] Neutrophils num Bld Auto 14.15 Thou/uL Above high normal 08/06/2023 2 - 7.5 [facility] Result Not Detected Normal 08/06/2023 - [facility] Lactate SerPl-sCnc 1.4 mmol/L Normal 08/06/2023 0.5 - 1.9 [facility]CT POC Glucose 182.0 mg/dL Above high normal 08/06/2023 65 - 99 [facility] Lactate SerPl-sCnc 1.0 mmol/L Normal 08/06/2023 0.5 - 1.9 [facility]CT BUN SerPl-mCnc 28.0 mg/dL Above high normal 08/06/2023 8 - 2 1 [facility]CT Sodium SerPl-sCnc 137.0 mmol/L Normal 08/06/2023 136 - 14 5 [facility]CT BUN/Creat SerPl 22.0 Ratio Normal 08/06/2023 10 - 25 HH CCT Glucose SerPl-mCnc 163.0 mg/dL Above high normal 08/06/2023 65 - 99 [facility]CT Potassium SerPl-sCnc 4.2 mmol/L Normal 08/06/2023 3.4 - 5 .3 [facility]CT Calcium SerPl-mCnc 8.9 mg/dL Normal 08/06/2023 8.7 - 10.5 H[facility]CT Anion Gap Bld-sCnc 13.0 Normal 08/06/2023 7 - 17 [facility]CT Creat SerPl-mCnc 1.3 mg/dL Normal 08/06/2023 0.5 - 1.3 HH CCT GFR/BSA.pred SerPlBld [id number]-BbAJsj 72.0 Normal 08/06/2023 59 - H[facility]CT CO2 SerPl-sCnc 19.0 mmol/L Below low normal 08/06/2023 22 - 33 [facility]CT Chloride SerPl-sCnc 105.0 mmol/L Normal 08/06/2023 98 - 1 07 [facility]CT MCV RBC Auto 83.0 fL Normal 08/06/2023 80 - 100 [facility]CT Eosinophil/leuk NFr Bld Auto 0.1 % Normal 08/06/2023 [facility] RDW RBC Auto-Rto 13.1 % Normal 08/06/2023 11.5 - 14.5 H[facility]CT Basophils num Bld Auto 0.03 Thou/uL Normal 08/06/2023 0 - 0.2 [facility]CT Eosinophil num Bld Auto 0.01 Thou/uL Normal 08/06/2023 0 - 0.7 [facility]CT Basophils/leuk NFr Bld Auto 0.2 % Normal 08/06/2023 [facility] Monocytes num Bld Auto 0.52 Thou/uL Normal 08/06/2023 0.2 - 1.5 [facility]CT Imm Granulocytes num Bld Auto 0.2 Thou/uL Above high normal 08/06/2023 0 - 0.1 H[facility]CT PMV Bld Auto 9.2 fL Normal 08/06/2023 7.5 - 12.5 H[facility]CT MCHC RBC Auto-mCnc 33.2 g/dL Normal 08/06/2023 30 - 36 H[facility]CT Hct VFr Bld Auto 37.4 % Below low normal 08/06/2023 39 - 54 [facility] Neutrophils/leuk NFr Bld Auto 93.5 % Normal 08/06/2023 [facility] Neutrophils num Bld Auto 15.38 Thou/uL Above high normal 08/06/2023 2 - 7.5 [facility]CT Monocytes/leuk NFr Bld Auto 3.2 % Normal 08/06/2023 [facility] RBC num Bld Auto 4.49 Mil/uL Below low normal 08/06/2023 4.5 - 6.2 H[facility]CT WBC num Bld Auto 16.4 Thou/uL Above high normal 08/06/2023 4 - 11 [facility]CT Lymphocytes num Bld Auto 0.3 Thou/uL Below low normal 08/06/2023 1.5 - 4.5 H[facility]CT MCH RBC Qn Auto 27.6 pg Normal 08/06/2023 26 - [address] Platelet num Bld Auto 234.0 Thou/uL Normal 08/06/2023 150 - 450 [facility]CT Hgb Bld-mCnc 12.4 g/dL Below low normal 08/06/2023 13 - 17.7 [facility]CT Lymphocytes/leuk NFr Bld Auto 1.8 % Normal 08/06/2023 CCT Imm Granulocytes/leuk NFr Bld Auto 1.2 % Normal 08/06/2023 CCT History of Medication Use Medication Directions Dispensed Refills Start Date End Date Stat us acetaminophen (TYLENOL) 500 MG tablet Take 1 tablet (500 mg total) by mouth 4 times daily (every 6 hours) as needed for mild pain. 08/10/2023 active chlorhexidine (PERIDEX) 0.12 % oral solution Apply 15 mL to the mouth or throat 2 (two) times a day. 08/10/2023 active ibuprofen (MOTRIN) 600 MG tablet Take 1 tablet (600 mg total) by mouth 4 times daily (every 6 hours) as needed for mild pain. 08/10/2023 active oxyCODONE (ROXICODONE) 5 MG immediate release tablet Take 1 tablet (5 mg total) by mouth every 4 (four) hours as needed for severe pain. Max Daily Amount: 30 mg 08/10/2023 active amoxicillin-clavulana te (AUGMENTIN) 875-125 MG per tablet Take 1 tablet by mouth 2 (two) times a day. 08/07/2023 08/18/2023 active albuterol (PROVENTIL HFA; VENTOLIN HFA) 108 (90 Base) MCG/ACT inhaler Inhale 2 puffs 4 times daily (every 6 hours) as needed for wheezing. active hydrOXYzine Pamoate (VISTARIL PO) Take 1 capsule by mouth 3 (three) times a day as needed. Unknown strength active ibuprofen (MOTRIN) 200 MG tablet Take 2 tablets (400 mg total) by mouth 4 times daily (every 6 hours) as needed for mild pain. active Allergies Allergen Reaction Severity Comment Documented Date Source Statu s BUPRENORPHINE-NALOXON E SWELLING Tongue [facility] 08/05/[facility] Problems Problem Status Onset Date Problem Type Date of Resoluti on Source Pain, dental active [facility] Abs[facility] active 2023-08-[address] [facility] Encounters Encounter Type Encounter Reason Primary Diagnosis Location Date Inpatient Periapical abscess without sinus Periapical abscess without sinus [facility] 08/05/2023 Care Team Organization Name Specialty Phone Email Start Date End Da te [facility] Primary Care 08/06/2023 [facility] 08/06/2023 05/30/2024 [facility] 08/06/2023
--- NOTE | 2025-03-04 23:07 | ED_ITS ---
HPI - General Adult General Chief complaint: Seizure Stated complaint: seizure, fall + head strike Time Seen by Provider: 03/04/25 22:54 History of Present Illness ED Provider: Mike ALANIS narrative: The patient is a 39 year-old with a history of opioid use disorder on methadone who came to the hospital today after having what seemed to be a witnessed seizure in his kitchen. He says that he was with some friends. They were smoking crack cocaine. He believes that he was standing up when he apparently had a seizure. As a result of the seizure he struck his head and was bleeding from a wound on the left side of his scalp. The seizure apparently listed a proximally 1 minute according to the witnesses. The friends called 911 and he was brought to the hospital. The patient has some scalp pain. He is not certain that he really has a headache. He has no neck pain or pain with moving his neck. He denies any numbness, tingling, weakness, burning in his extremities. The said he had a seizure a few months ago. He did not seek medical attention at that time because he did not sustain any injuries. He says that that seizure was also witnessed by friends and that that seizure was also in the setting of just having used crack cocaine. Related Data Home Medications ?Medication ?Instructions ?Recorded ?Confirmed buprenorphine 5.7 mg-naloxone 1.4 1 tab sublingual JULIUS LY 01/11/20 04/11/20 mg sublingual tablet (Zubsolv) Previous Rx's ?Medication ?Instructions ?Recorded ProAir HFA 90 mcg/actuation 2 puff inhalation Q6H PRN for 10/09/20 aerosol inhaler (albuterol sulfate) wheezing #8.5 gram s omeprazole 20 mg capsule,delayed 20 mg PO DAILY #90 ca ps 11/01/20 release hydroxyzine HCl 50 mg tablet 50 mg PO BID PRN itching #60 tabs 02/17/21 fluticasone propionate 110 2 puff inhalation BID #12 g robert 03/23/21 mcg/actuation HFA aerosol inhaler (Flovent HFA) amoxicillin 875 mg-potassium 1 tab PO BID #13 tabs clavulanate 125 mg tablet ofloxacin 0.3 % ear drops 5 drp otic (ears) DAILY 7 da ys #5 03/16/24 mL Allergies Allergy/AdvReac Type Severity Reaction Status Date / Time No Known Allergies Allergy Verified 03/04/25 21:58 Review of Systems 2 Review of Systems: Yes all other systems are reviewed and are negative FORMERLY [facility], [facility]–1983 Past Medical History Medical History Anxiety and depression Polysubstance abuse GERD (gastroesophageal reflux disease) Obesity (BMI 30-39.9) Asthma Surgical History No pertinent past surgical history Family History Family History (Updated 04/11/20 @ 12:04 by Maryanne Johnson MD) Father Hodgkin disease Mother No problems noted. Maternal Grandfather Esophageal cancer Maternal Uncle Drug addiction Myocardial infarct Sister Depressed Social History Social History Alcohol intake: never Use of substances other than those prescribed or required for medical reasons: Yes Substance Use Type: Crack/Cocaine Advance Directives: No Advance Directives Information Provided: No Physical Exam ED Vital Signs: Vital Signs - 24 hr 03/04/25 21:57 03/05/25 00:54 03/05/25 00:59 Temperature 97.9 F 98.0 F 98.0 F Pulse Rate 94 70 70 Respiratory Rate 18 18 18 Blood Pressure 116/80 108/73 108/73 Pulse Oximetry 99 98 98 Oxygen Delivery Method Room Air Room Air Room Air BMI result Body Mass Index 26.9 Const Other: The patient is awake and alert. Mental status is normal. GCS is 15. He looks somewhat disheveled and somewhat chronically ill. Not appear obviously acutely ill. HENMT Other: The patient has a laceration to the left scalp over the left parietal bone just above the temporal bone. This laceration is horizontally oriented and associated with some general excoriation to the skin adjacent to the lower edge of the wound. There was no raccoon eyes or bales sign. No hemotympanum. No oral injury. No tongue biting. No trismus. Eyes Other: Pupils are round equal, conjunctivae are clear, extraocular movements intact Neck Other: No posterior midline C-spine tenderness. No pain with the range of motion of the neck. C-spine is clinically clear. Resp Effort & Inspection: normal respiratory effort Auscultation: clear to auscultation bilaterally Cardio Rate: regular rate Rhythm: regular rhythm Heart sounds: S1 normal heart sound present and S2 normal heart sound present GI Other: Abdomen is soft and nontender Skin Other: The skin of the scalp shows a laceration in the left temporoparietal region of the scalp. Elsewhere the skin is uninjured but looks somewhat pale. Neuro Other: The patient is awake, alert, oriented, appropriate. Mental status is normal and appropriate. Cranial nerves are intact. He moves his extremities symmetrically and appropriately. Extrem Other: No injuries to the extremities. No deformity. Medications Administered Discontinued Medications Generic Name Dose Route Start Last Admin Trade Name Miriam PRN Reason Stop Dose Admin Diazepam 5 mg 03/04/25 23:02 03/04/25 23:35 Diazepam 10 Mg/2 Ml Cartridge IVPUSH 03/04/25 23:03 5 mg STAT STA Administration Diphtheria/Tetanus/Acell Pertussis 0.5 ml 03/04/25 23:09 03/04/25 23:35 Diphth,Pertus(Acell),Tet Adult 0.5 Ml Syringe IM 03/04/25 23:10 0.5 ml .ONCE ONE Administration Procedures Laceration Laceration 1: Site: scalp Side (If applicable): left Size (cm): 4 Description: linear Depth: simple, single layer Local Anesthetic: lidocaine 1% Amount of anesthesia used (mL): 4 Pre-repair: wound explored, irrigated extensively and deep structures intact Skin layer closed with: eh Number of closing items:: 8 Medical Decision Making Medical Decision Making [facility] Narrative: The patient is a 39-year-old male who was on methadone for opioid use disorder. He had a seizure that was witnessed by friends heatheright. He struck his head on a concrete floor during the seizure and sustained a laceration to the left temporoparietal scalp. The seizure lasted about 1 minute. He was brought to the hospital by ambulance. The seizure occurred just after the patient was smoking crack cocaine. The patient reports a similar event about 3 or 4 months ago. He has a seizure that was witnessed by the same people 3 or 4 months ago after smoking crack cocaine. The patient does not otherwise have any known seizure disorder. He is only aware of these 2 seizures which occurred when he was using crack cocaine. He says that about 20 years ago 1 of his relatives told him that he had a seizure while he was sleeping but that was never pursued and he does not know what to make of that. The patient has a negative head CT. His scalp wound was closed with 8 eh that should be removed in 8-10 days. The patient was given a tetanus update. I explained to the patient that since his seizure seemed to be associated with crack cocaine use there was no indication for initiating antiepileptic therapy. The intervention in this case is to stop using crack cocaine. The patient understands this. I further explained that because he had a seizure he should not drive for 6 months and should be cleared by another doctor before returning to driving. He will be following up with his PCP for suture removal and for additional discussion of the seizure episode. Lab Data 03/04/25 23:24 03/04/25 23:24 Labs: Lab Results 03/04/25 Range/Units 23:24 WBC 12.7 H (4.8-10.8) X10*3/uL RBC 4.60 (4.60-5.80) X10*6/uL Hgb 12.8 L (14.0-18.0) g/dl Hct 38.4 L (42.0-52.0) % MCV 83.5 (80.0-98.0) fL MCH 27.8 (27.0-33.0) pg MCHC 33.3 (31.0-36.0) g/dl RDW 12.8 (11.0-16.0) % Plt Count 220 (160-400) X10*3/uL MPV 9.2 L (9.4-12.4) fL Immature Gran % (Auto) 0.2 (0.0-0.4) % Neut % (Auto) 73.9 H (45-73) % Lymph % (Auto) 15.4 L (20-40) % [place] % (Auto) 6.9 (2-11) % Eos % (Auto) 3.0 (0-4) % Baso % (Auto) 0.6 (0-2) % Lymph # (Auto) 2.0 (1.2-4.9) X10*3/uL [place] # (Auto) 0.9 (0.1-1.2) X10*3/uL Eos # (Auto) 0.4 (0.0-0.4) X10*3/uL Baso # (Auto) 0.1 (0.0-0.2) X10*3/uL Abs Immat Gran (auto) 0.03 (0.00-0.03) X10*3/uL Absolute Neuts (auto) 9.3 H (2.0-8.3) x10*3/uL Absolute Nucleated RBC 0.000 (0.0-0.012) X10*3/uL Nucleated RBC % (auto) 0.0 (0.0-0.2) /100WBC Sodium 140 (135-145) mmol/L Potassium 4.2 (3.3-5.1) mmol/L Chloride 103 (96-108) mmol/L Carbon Dioxide 28 (22-29) mmol/L Anion Gap 13 (12-20) BUN 18 H (9-16) mg/dL Creatinine 0.97 (0.5-1.4) mg/dL Estim Creat Clear Calc 93.6 Estimated GFR > 60 Random Glucose 83 (60-115) mg/dL Calcium 8.9 D (8.4-10.2) mg/dL Total Bilirubin 0.4 (0.0-1.0) mg/dL AST 31 (5-37) U/L ALT 28 (0-40) U/L Alkaline Phosphatase 54 (39-117) U/L Troponin I High Sens < 2.7 (<3.5-35.0) ng/L Total Protein 6.8 (6.5-8.0) g/dL Albumin 4.4 (3.5-5.0) g/dL Discharge Plan Discharge Clinical Impression: Seizure, Crack cocaine use, Head injury, Laceration of scalp Patient Disposition: Home, Self-Care Instructions: Laceration (ED), New-Onset Seizure in Adults (ED) Additional Instructions: You seemed to have had a seizure today. I believe this seizure was provoked by use of crack cocaine. Since this seizure seems to has been provoked by the use of crack cocaine this not be a case where you would be started on antiseizure medication. The primary recommendation is for you not to use crack cocaine again so you do not have seizures in the future. In the meantime you must be advised that since you have had a seizure you should not drive for 6 months. During that time you need to be seen by a doctor and cleared for driving before returning to driving. At therefore please make an appointment with your regular doctor to discuss this. Additionally you have a laceration on the left side of your scalp. This was closed with eh. Please have the eh removed at your regular doctor's office in about 10 days. Keep the wound clean and dry. You may shower. Again, follow up with your regular doctor both for staple removal in 10 days and also to discuss this seizure episode. Do your best not to use crack cocaine again. Return to the emergency room if any concerns. Prescriptions: No Action albuterol sulfate [ProAir HFA] 90 mcg/actuation HFA aerosol inhaler 2 puff inhalation Q6H PRN (Reason: for wheezing) Qty: 8.5 1RF omeprazole 20 mg capsule,delayed release(DR/EC) 20 mg PO DAILY Qty: 90 1RF hydroxyzine HCl 50 mg tablet 50 mg PO BID PRN (Reason: itching) Qty: 60 2RF Flovent HFA 110 mcg/actuation HFA aerosol inhaler 2 puff inhalation BID Qty: 12 11RF amoxicillin-pot clavulanate 875-125 mg tablet 1 tab PO BID Qty: 13 0RF ofloxacin 0.3 % drops 5 drp otic (ears) DAILY 7 Days Qty: 5 0RF Zubsolv 5.7-1.4 mg tablet, sublingual 1 tab sublingual DAILY Referrals: Po,Maryanne Nava MD [Primary Care Provider, Internal Medicine] Interventions: ED Discharge Assessment Last Done: 03/05/25 00:59 Discharge Date/Time: 03/05/25 01:00 Print Language: Bengali
[2025-03-04 23:28] LABS: MANUAL DIFF FLAG NO
[2025-03-04 23:31] LABS: Hematocrit 38.4 % (42.0-52.0); Hemoglobin 12.8 g/dl (14.0-18.0); Imm Gran Abs Auto 0.03 X10*3/uL (0.00-0.03); Imm Gran Pct Auto 0.2 % (0.0-0.4); Lymphocytes Absolute Auto 2.0 X10*3/uL (1.2-4.9); Mean Corpuscular HGB Conc 33.3 g/dl (31.0-36.0); Mean Corpuscular Hemoglobin 27.8 pg (27.0-33.0); Mean Corpuscular Volume 83.5 fL (80.0-98.0); NRBC Abs Auto 0.000 X10*3/uL (0.0-0.012); NRBC Pct Auto 0.0 /100WBC (0.0-0.2); Platelet Count 220 X10*3/uL (160-400); Red Blood Count 4.60 X10*6/uL (4.60-5.80); White Blood Count 12.7 X10*3/uL (4.8-10.8)
[2025-03-04] MEDS: diazePAM 10 MG/2 ML CARTRIDGE 5 MG IVPUSH (23:35)
[2025-03-04] MEDS: Diphth,Pertus(ACell),Tet Adult 0.5 ML SYRINGE IM (23:35)
[2025-03-04 23:43] LABS: Alanine Aminotransferase 28 U/L (0-40); Albumin Level 4.4 g/dL (3.5-5.0); Alkaline Phosphatase 54 U/L (39-117); Anion Gap 13 (12-20); Aspartate Amino Transferase 31 U/L (5-37); Blood Urea Nitrogen 18 mg/dL (9-16); Calcium 8.9 mg/dL (8.4-10.2); Carbon Dioxide 28 mmol/L (22-29); Chloride 103 mmol/L (96-108); Creatinine Clr Calc Pharmacy 93.6; Estimated Glomerular Filt Rate > 60; Potassium 4.2 mmol/L (3.3-5.1); Sodium 140 mmol/L (135-145); Total Protein 6.8 g/dL (6.5-8.0)
[2025-03-04 23:50] LABS: Troponin-I High Sensitivity < 2.7 ng/L (<3.5-35.0)
[2025-03-05 00:54] VITALS: BP 108/73; PULSE 70; RESP 18; TEMP 36.7; O2SAT 98
[2025-03-05 00:59] VITALS: BP 108/73; PULSE 70; RESP 18; TEMP 36.7; O2SAT 98
== END 2025-03-05 01:00 | disposition home or self-care (01) ==
PROVIDERS: Emergency Provider Emergency Medicine; PCP Internal Medicine
DX: S01.01XA Laceration without foreign body of scalp, initial encounter (principal); R56.9 Unspecified convulsions; R51.9 Headache, unspecified; F14.90 Cocaine use, unspecified, uncomplicated; F11.90 Opioid use, unspecified, uncomplicated; X58.XXXA Exposure to other specified factors, initial encounter; Y93.9 Activity, unspecified; Y92.9 Unspecified place or not applicable; Y99.8 Other external cause status; Z79.899 Other long term (current) drug therapy; Z23 Encounter for immunization
CPT/HCPCS: 12002; 36415; 70450; 80053; 84484; 85025; 90471; 90715; 93005; 96374; 99284; J3360

== ENCOUNTER → 2025-03-04 23:00 | Outpatient (BNV) | payer MEDICAID, SELFPAY | PROVIDERS: Emergency Provider Emergency Medicine; PCP Internal Medicine; Visit Provider Internal Medicine Cardiovascular Disease | DX: R56.9 Unspecified convulsions (principal) | CPT/HCPCS: 93010 ==

== ENCOUNTER → 2025-03-04 23:02 | Outpatient (BNV) | payer MEDICAID, SELFPAY | PROVIDERS: Emergency Provider Emergency Medicine; PCP Internal Medicine; Visit Provider Radiology Diagnostic Radiology | DX: S00.03XA Contusion of scalp, initial encounter (principal); R22.0 Localized swelling, mass and lump, head | CPT/HCPCS: 70450 ==